=== PATIENT | female | born 1995 | race Caucasian/White ===

== ENCOUNTER 2018-03-13 10:59 | Day surgery (SDC) | payer BC ==
[~2018-03-13 10:59] MED LIST: Lactated Ringers 1,000 ML IV SCH
[2018-03-13] MEDS ORDERED: fentaNYL 100 MCG/2 ML SDV IVPUSH PRN (11:28)
[2018-03-13] MEDS ORDERED: Ondansetron 4 MG/2 ML SDV IVPUSH SCH (11:30)
--- NOTE | 2018-03-13 11:31 | PCM.PREANE ---
Preanesthetic Assessment - Anesthesia/Transfusion/Family Hx Anesthesia History: Prior Anesthesia Without Reaction Family History of Anesthesia Reaction: No Transfusion History: No Prior Transfusion(s) Intubation History: Unknown - Review of Systems General: No Symptoms Pulmonary: No Symptoms Cardiovascular: No Symptoms Neurological: No Symptoms Other: Reports: None - Physical Assessment Height: 1.68 m Weight: 86.183 kg ASA Class: 2 Mental Status: Alert & Oriented x3 Airway Class: Mallampati = 1 Dentition: Reports: Normal Dentition ROM/Head Extension: Full Lungs: Clear to Auscultation, Normal Respiratory Effort Cardiovascular: Regular Rate, Regular Rhythm - Allergies Allergies/Adverse Reactions: Allergies Allergy/AdvReac Type Severity Reaction Status Date / Time No Known Allergies Allergy Verified 03/12/18 08:05 - Blood Blood Available: Yes - Anesthesia Plan Pre-Op Medication Ordered: None - Acknowledgements Anesthesia Type Planned: MAC Pt an Appropriate Candidate for the Planned Anesthesia: Yes Alternatives and Risks of Anesthesia Discussed w Pt/Guardian: Yes Pt/Guardian Understands and Agrees with Anesthesia Plan: Yes PreAnesthesia Questionnaire Other HEENT History: wears contacts/glasses Respiratory History: Reports: Other (See Below) Other Respiratory History: asthma as a child [employer] History: Reports: Other OB/BYN History: vaginal delivery 7 weeks ago, presently breast feeding Psychiatric History: Reports: Anxiety, Depression Hematologic History: Reports: Anemia - Past Surgical History Head Surgeries/Procedures: Reports: None - SUBSTANCE USE Smoking Status *Q: Never Smoker Recreational Drug Use History: No - HOME MEDS Home Medications: Home Meds Iron 27 mg PO DAILY 03/12/18 [History] PNV95/Ferrous Fumarate/FA [ Vitamin Tablet] 1 tab PO DAILY 03/12/18 [ History] - CURRENT (IN HOUSE) MEDS Current Meds: Current Medications Fentanyl (Sublimaze) 50 mcg IVPUSH Q5M PRN PRN Reason: Pain (severe 7-10) Stop: 03/14/18 11:28 Lactated Ringer's (Ringers, Lactated) 1,000 mls @ 125 mls/hr IV ASDIRECTED MELVI Ondansetron HCl (Zofran) 4 mg IVPUSH .ONCE MELVI Stop: 03/13/18 16:00
[2018-03-13] MEDS ORDERED: Propofol 200 MG/20 ML SDV ONE (11:33)
[2018-03-13] MEDS ORDERED: Succinylcholine 200 MG/10 ML MDV ONE (11:34)
[2018-03-13] MEDS ORDERED: Rocuronium 10 MG/ML 10 ML Syringe ONE (11:34)
[2018-03-13] MEDS ORDERED: Midazolam 1 MG/ML 2 ML SDV ONE (11:34)
[2018-03-13] MEDS ORDERED: ceFAZolin 2 GM in Premix Bag 1 BAG IV ONE (12:12)
[2018-03-13] MEDS ORDERED: ceFAZolin 1 GM Vial ONE ×2 (12:48)
--- NOTE | 2018-03-13 12:59 | PCM.OPNOTE ---
- General Post-Op/Procedure Note Date of Surgery/Procedure: 03/13/18 Operative Procedure(s): suction dilatation and curettage Findings: Uterus anteverted. Sounds to 9 cm, minimal tissue obtained, good uterine cry on sharp curettage Pre Op Diagnosis: purpeural fever, rule out retained products of conception Post-Op Diagnosis: Same Anesthesia Technique: MAC Primary Surgeon: Joann Edmond Anesthesia Provider: Allen Diaz Pathology: uterine contents (endometrium vs products of conception) EBL in mLs: 20 Complications: None Known Condition: Good
--- NOTE | 2018-03-13 13:13 | PCM.POSTAN ---
POST ANESTHESIA ASSESSMENT - MENTAL STATUS Mental Status: Alert, Oriented - RESPIRATORY Respiratory Status: Respiratory Rate WNL, Airway Patent, O2 Saturation Stable - CARDIOVASCULAR CV Status: Pulse Rate WNL, Blood Pressure Stable - GASTROINTESTINAL GI Status: No Symptoms - POST OP HYDRATION Hydration Status: Adequate & Stable
--- NOTE | 2018-03-13 13:14 | PCM48HPAN ---
Post Anesthesia Note - EVALUATION WITHIN 48HRS OF ANESTHETIC Vital Signs in Normal Range: Yes Patient Participated in Evaluation: Yes Respiratory Function Stable: Yes Airway Patent: Yes Cardiovascular Function Stable: Yes Hydration Status Stable: Yes Pain Control Satisfactory: Yes Nausea and Vomiting Control Satisfactory: Yes Mental Status Recovered: Yes Resp Rate: 18
--- NOTE | 2018-03-13 19:44 | OR ---
SURGEON: Joann Edmond M.D. DATE OF PROCEDURE: 03/13/2018 PREOPERATIVE DIAGNOSIS: Six weeks with fever, cannot rule out retained products on the ultrasound. POSTOPERATIVE DIAGNOSIS: Six weeks with fever, cannot rule out retained products on the ultrasound. PROCEDURE: Suction dilatation and curettage. ANESTHESIA: LMA. ESTIMATED BLOOD LOSS: Less than 20 mL. FINDINGS: Uterus firm, anteverted, less than eight week size, sounds to 9 cm. Minimal tissue obtained. Good uterine cry felt on all surfaces. COMPLICATIONS: None known. DISPOSITION: Stable to recovery. BRIEF HISTORY: This is a 22-year-old female. She is now 6 weeks . She presented to her visit and reported fevers up to 103. These are intermittent. They generally happen at night. She had stopped bleeding and then has had two episodes of heavy bleeding since that time, and an ultrasound was obtained which showed increased Doppler flow to the anterior endometrium with no discrete products of conception, but could not rule out retained products of conception. I, therefore, recommended proceeding with a suction dilatation and curettage with risks discussed including bleeding, infection, injury to bowel, bladder, blood vessels or other organs, risk of thromboembolic event, risk of anesthesia understanding all these risks, she does desire to proceed. DESCRIPTION OF PROCEDURE: With the patient in dorsal lithotomy position, under adequate LMA analgesia, the perineum and vagina were prepped and draped in usual fashion for vaginal surgery. SCDs were in place. The bladder had been drained and a bimanual examination was performed with the findings of an anteverted firm at 9 week size uterus. After an appropriate time-out was held. A speculum was placed in the vagina. The anterior lip of the cervix was grasped with an Allis clamp. The cervix was sounded to 9 cm. The cervix was easily dilated to a 10 mm Hegar dilator. A 10 mm straight suction curette was placed to the uterine fundus and retracted repetitively turning continuously. There was minimal tissue obtained. Sharp curettage with a curette was performed at the 12 o'clock, 3 o'clock, 6 o'clock, and 9 o'clock position. There was a good uterine cry felt on all surfaces. There was no additional tissue obtained. An additional pass was taken with the suction curette. No further tissue was obtained. There was minimal bleeding. All the instruments were removed from the vagina. Final sponge, needle, and instrument counts were reported as correct. There were no known complications. The patient was transferred to recovery in good condition. ERIKA SMYTH /[id number]
== END 2018-03-13 13:55 | disposition home or self-care (01) ==
LOC: MW.SDS 10:59
PROVIDERS: ATTEND Obstetrics & Gynecology
DX: O72.2 Delayed and secondary postpartum hemorrhage (principal); J45.909 Unspecified asthma, uncomplicated; F41.9 Anxiety disorder, unspecified; F32.9 Major depressive disorder, single episode, unspecified
CPT/HCPCS: 36415; 59160; 81025; 86850; 86900; 86901; J0330; J0690; J2250; J2704; J7120; 88305

== ENCOUNTER 2018-05-18 15:29 | Emergency (ER) | payer BC ==
[2018-05-18] MEDS ORDERED: Sodium Chloride 0.9% 1,000 ML IV ONE (15:34)
--- NOTE | 2018-05-18 15:51 | EDM.PDOC ---
ED HPI GENERAL MEDICAL PROBLEM - General Chief Complaint: Abdominal Pain Stated Complaint: STOMACH PAIN Time Seen by Provider: 05/18/18 15:32 Source of Information: Reports: Patient History Limitations: Reports: No Limitations - History of Present Illness INITIAL COMMENTS - FREE TEXT/NARRATIVE: HISTORY AND PHYSICAL: History of present illness: Patient is a 22-year-old female who presents to the emergency room with complaints of low abdominal pain and numbness and tingling to bilateral hands and fingertips (moreso right than left). She states she had a vaginal delivery approximately 4 months ago and since that time has had intermittent bleeding. She has been seen multiple times by her primary [employer], Dr. Edmond. Recently had been evaluated for vaginal bleeding and anemia. Had an D&C done on 03/14/2018, and an IUD placed 2 weeks ago. She last saw Dr. Edmond 2 days ago as follow up, and states everything was fine. Approximately an hour prior to arrival she started to develop low abdominal pain with numbness and tingling to her hands and fingertips. She denies any recent injury, trauma or falls.She denies any fever, chills, chest pain, shortness of breath or cough. She denies any headache , change in vision, syncope or near syncope. Denies any nausea, vomiting, constipation or dysuria. She did have 2 loose stools this morning but has not noticed any blood or change in consistency. 2, para 1. Currently is breast-feeding. Review of systems: As per history of present illness and below otherwise all systems reviewed and negative. Past medical history: As per history of present illness and as reviewed below otherwise noncontributory. Surgical history: As per history of present illness and as reviewed below otherwise noncontributory. Social history: See social history for further information Family history: As per history of present illness and as reviewed below otherwise noncontributory. Physical exam: General: Well-developed and well nourished 22-year-old female. Alert and oriented. Nontoxic appearing and in no acute distress. HEENT: Atraumatic, normocephalic, pupils equal and reactive bilaterally, negative for conjunctival pallor or scleral icterus, mucous membranes moist, TMs normal bilaterally, throat clear, neck supple, nontender, trachea midline. No drooling or trismus noted. No meningeal signs. No hot potato voice noted. Lungs: Clear to auscultation, breath sounds equal bilaterally, chest nontender. Heart: S1S2, regular rate and rhythm without overt murmur Abdomen: Soft, nondistended, nontender. Negative for masses or hepatosplenomegaly. Negative for costovertebral tenderness. Pelvis: Stable nontender. Genitourinary: Deferred. Rectal: Deferred. Skin: Intact, warm, dry. No lesions or rashes noted. Extremities: Atraumatic, negative for cords or calf pain. Neurovascular unremarkable. Neuro: Awake, alert, oriented. Cranial nerves II through XII unremarkable. Cerebellum unremarkable. Motor and sensory unremarkable throughout. Exam nonfocal. Notes: Ultrasound shows normal bilateral ovarian blood flow with numerous subcentimeter follicles and borderline ovarian volumes which could possibly be PCOS. Informed the patient that she should follow closely with her [employer] for further evaluation and management of this. Patient feels her symptoms have improved after receiving the IV fluids. Her vital signs remained stable. Patient is currently breast-feeding, we discussed [id number] remedies for pain management. She is agreeable and does not want any prescription pain medications. Patient states that she will follow-up with Dr. edmond. Supportive care measures were reviewed and discussed. Voices understanding and is agreeable to plan of care. Denies any further questions or concerns at this time. Diagnostics: CBC, CMP, UA, urine , non-OB pelvic ultrasound Therapeutics: IV fluid Prescription: None Impression: Anemia Paraesthesia of right hand Abdominal pain, nonspecific Plan: 1. Continue to follow up closely with Dr Edmond regarding your chronic anemia and low abdominal pain. 2. Tylenol and/or Ibuprofen as needed for pain management. 3. Return to the ED as needed as discussed. Definitive disposition and diagnosis as appropriate pending reevaluation and review of above. Onset: Today Abdominal Pain Score (Numeric/FACES): 7 - Related Data Allergies Allergy/AdvReac Type Severity Reaction Status Date / Time No Known Allergies Allergy Verified 05/18/18 15:51 Home Meds: Home Meds Iron 27 mg PO DAILY 03/12/18 [History] PNV95/Ferrous Fumarate/FA [ Vitamin Tablet] 1 tab PO DAILY 03/12/18 [ History] Past Medical History Other HEENT History: wears contacts/glasses Respiratory History: Reports: Other (See Below) Other Respiratory History: asthma as a child [employer] History: Reports: Other [employer] History: vaginal delivery 7 weeks ago, presently breast feeding Psychiatric History: Reports: Anxiety, Depression Hematologic History: Reports: Anemia - Past Surgical History Head Surgeries/Procedures: Reports: None Social & Family History - Family History Cardiac: Reports: Hypertension, MS OBGYN: Reports: Neurological: Reports: CVA Endocrine/Metabolic: Reports: Diabetes, type II Oncologic: Reports: Breast, Lung - Caffeine Use Caffeine Use: Reports: None ED ROS GENERAL - Review of Systems Review Of Systems: ROS reveals no pertinent complaints other than HPI. ED EXAM, GI/ABD - Physical Exam Exam: See Below (See dictation) Course - Vital Signs Last Recorded V/S: Last Vital Signs Temp 97.5 F 05/18/18 15:51 Pulse 75 05/18/18 15:51 Resp 18 05/18/18 15:51 BP 143/76 H 05/18/18 15:51 Pulse Ox 100 05/18/18 15:51 Orthostatic Blood Pressure [] 105/68 Orthostatic Blood Pressure [] 113/62 Orthostatic Blood Pressure [] 117/58 - Orders/Labs/Meds Orders: Active Orders 24 hr Category Date Time Status Orthostatic Vital Signs [RC] ASDIRECTED Care 05/18/18 17:19 Active Labs: Laboratory Tests 05/18/18 05/18/18 05/18/18 Range/Units 15:40 15:40 15:49 WBC 9.12 (4.0-11.0) K/uL RBC 5.37 (4.30-5.90) M/uL Hgb 11.9 L (12.0-16.0) g/dL Hct 38.2 (36.0-46.0) % MCV 71.1 L (80.0-98.0) fL MCH 22.2 L (27.0-32.0) pg MCHC 31.2 (31.0-37.0) g/dL RDW Std Deviation 47.6 (28.0-62.0) fl RDW Coeff of Connor 19 H (11.0-15.0) % Plt Count 336 (150-400) K/uL MPV 9.10 (7.40-12.00) fL Neut % (Auto) 49.5 (48.0-80.0) % Lymph % (Auto) 44.0 H (16.0-40.0) % [place] % (Auto) 3.4 (0.0-15.0) % Eos % (Auto) 2.9 (0.0-7.0) % Baso % (Auto) 0.2 (0.0-1.5) % Neut # (Auto) 4.5 (1.4-5.7) K/uL Lymph # (Auto) 4.0 H (0.6-2.4) K/uL [place] # (Auto) 0.3 (0.0-0.8) K/uL Eos # (Auto) 0.3 (0.0-0.7) K/uL Baso # (Auto) 0.0 (0.0-0.1) K/uL Nucleated RBC % 0.0 /100WBC Nucleated RBCs # 0 K/uL Sodium (136-145) mmol/L Potassium (3.5-5.1) mmol/L Chloride (98-107) mmol/L Carbon Dioxide (21.0-32.0) mmol/L BUN (7.0-18.0) mg/dL Creatinine (0.6-1.0) mg/dL Est Cr Clr Drug Dosing mL/min Estimated GFR (MDRD) ml/min Glucose (74-106) mg/dL Calcium (8.5-10.1) mg/dL Total Bilirubin (0.2-1.0) mg/dL AST (15-37) IU/L ALT (14-63) IU/L Alkaline Phosphatase (46-116) U/L Total Protein (6.4-8.2) g/dL Albumin (3.4-5.0) g/dL Globulin (2.6-4.0) g/dL Albumin/Globulin Ratio (0.9-1.6) Urine Color YELLOW Urine Appearance CLEAR Urine pH 7.0 (5.0-8.0) Ur Specific [place] 1.020 (1.001-1.035) Urine Protein TRACE H (NEGATIVE) mg/dL Urine Glucose (UA) NEGATIVE (NEGATIVE) mg/dL Urine Ketones NEGATIVE (NEGATIVE) mg/dL Urine Occult Blood SMALL H (NEGATIVE) Urine Nitrite NEGATIVE (NEGATIVE) Urine Bilirubin NEGATIVE (NEGATIVE) Urine Urobilinogen 0.2 (<2.0) EU/dL Ur Leukocyte Esterase NEGATIVE (NEGATIVE) Urine RBC 0-2 (0-2/HPF) Urine WBC 1-3 (0-5/HPF) Ur Epithelial Cells FEW (NONE-FEW) Amorphous Sediment FEW (NEGATIVE) Urine Bacteria FEW (NEGATIVE) Urine Mucus FEW (NONE-MOD) Urine HCG, Qual NEGATIVE (NEGATIVE) 05/18/18 Range/Units 15:49 WBC (4.0-11.0) K/uL RBC (4.30-5.90) M/uL Hgb (12.0-16.0) g/dL Hct (36.0-46.0) % MCV (80.0-98.0) fL MCH (27.0-32.0) pg MCHC (31.0-37.0) g/dL RDW Std Deviation (28.0-62.0) fl RDW Coeff of Connor (11.0-15.0) % Plt Count (150-400) K/uL MPV (7.40-12.00) fL Neut % (Auto) (48.0-80.0) % Lymph % (Auto) (16.0-40.0) % [place] % (Auto) (0.0-15.0) % Eos % (Auto) (0.0-7.0) % Baso % (Auto) (0.0-1.5) % Neut # (Auto) (1.4-5.7) K/uL Lymph # (Auto) (0.6-2.4) K/uL [place] # (Auto) (0.0-0.8) K/uL Eos # (Auto) (0.0-0.7) K/uL Baso # (Auto) (0.0-0.1) K/uL Nucleated RBC % /100WBC Nucleated RBCs # K/uL Sodium 142 (136-145) mmol/L Potassium 3.5 (3.5-5.1) mmol/L Chloride 106 (98-107) mmol/L Carbon Dioxide 23.7 (21.0-32.0) mmol/L BUN 14 (7.0-18.0) mg/dL Creatinine 1.1 H (0.6-1.0) mg/dL Est Cr Clr Drug Dosing 79.33 mL/min Estimated GFR (MDRD) > 60.0 ml/min Glucose 118 H (74-106) mg/dL Calcium 9.1 (8.5-10.1) mg/dL Total Bilirubin 0.3 (0.2-1.0) mg/dL AST 8 L (15-37) IU/L ALT 24 (14-63) IU/L Alkaline Phosphatase 108 (46-116) U/L Total Protein 8.2 (6.4-8.2) g/dL Albumin 4.1 (3.4-5.0) g/dL Globulin 4.1 H (2.6-4.0) g/dL Albumin/Globulin Ratio 1.0 (0.9-1.6) Urine Color Urine Appearance Urine pH (5.0-8.0) Ur Specific [place] (1.001-1.035) Urine Protein (NEGATIVE) mg/dL Urine Glucose (UA) (NEGATIVE) mg/dL Urine Ketones (NEGATIVE) mg/dL Urine Occult Blood (NEGATIVE) Urine Nitrite (NEGATIVE) Urine Bilirubin (NEGATIVE) Urine Urobilinogen (<2.0) EU/dL Ur Leukocyte Esterase (NEGATIVE) Urine RBC (0-2/HPF) Urine WBC (0-5/HPF) Ur Epithelial Cells (NONE-FEW) Amorphous Sediment (NEGATIVE) Urine Bacteria (NEGATIVE) Urine Mucus (NONE-MOD) Urine HCG, Qual (NEGATIVE) Meds: Medications Discontinued Medications Generic Name Dose Route Start Last Admin Trade Name Freq PRN Reason Stop Dose Admin Sodium Chloride 1,000 mls @ 999 mls/hr 05/18/18 15:34 05/18/18 15:49 Normal Saline IV 05/18/18 16:34 999 mls/hr STAT ONE Administration Departure - Departure Time of Disposition: 18:27 Disposition: Home, Self-Care 01 Clinical Impression: Abdominal pain Qualifiers: Abdominal location: lower abdomen, unspecified Qualified Code(s): R10.30 - Lower abdominal pain, unspecified Anemia Qualifiers: Anemia type: unspecified type Qualified Code(s): D64.9 - Anemia, unspecified Paresthesia of hand Qualifiers: Laterality: right Qualified Code(s): R20.2 - Paresthesia of skin - Discharge Information Instructions: Abdominal Pain, Adult, [id number] Referrals: PCP,Unknown [Primary Care Provider] - Forms: ED Department Discharge Additional Instructions: The following information is given to patients seen in the emergency department who are being discharged to home. This information is to outline your options for follow-up care. We provide all patients seen in our emergency department with a follow-up referral. The need for follow-up, as well as the timing and circumstances, are variable depending upon the specifics of your emergency department visit. If you don't have a primary care physician on staff, we will provide you with a referral. We always advise you to contact your personal physician following an emergency department visit to inform them of the circumstance of the visit and for follow-up with them and/or the need for any referrals to a consulting specialist. The emergency department will also refer you to a specialist when appropriate. This referral assures that you have the opportunity for follow-up care with a specialist. All of these measure are taken in an effort to provide you with optimal care, which includes your follow-up. Under all circumstances we always encourage you to contact your private physician who remains a resource for coordinating your care. When calling for follow-up care, please make the office aware that this follow-up is from your recent emergency room visit. If for any reason you are refused follow-up, please contact the [facility] Emergency Department at and asked to speak to the emergency department charge nurse. [facility] [address] [place] [id number] [facility] [address] [place] [id number] [facility] [address] [place] [id number] 1. Continue to follow up closely with Dr Edmond regarding your chronic anemia and low abdominal pain. 2. Tylenol and/or Ibuprofen as needed for pain management. 3. Return to the ED as needed as discussed. - My Orders Last 24 Hours: My Active Orders 05/18/18 17:19 Orthostatic Vital Signs [RC] ASDIRECTED - Assessment/Plan Last 24 Hours: My Active Orders 05/18/18 17:19 Orthostatic Vital Signs [RC] ASDIRECTED
[2018-05-18 16:19] LABS: CHLORIDE,CL 106 mmol/L (98-107); SODIUM,NA 142 mmol/L (136-145)
--- NOTE | 2018-05-18 18:13 | US ---
INDICATION: Low pelvic pain TECHNIQUE: Ultrasound pelvis transabdominal and transvaginal for better assessment or to better visualize the endometrium. Real-time sonographic images with spectral and color Doppler imaging of the ovaries were obtained. COMPARISON: None FINDINGS: Uterus: 8.3 x 3.7 x 4.7 cm. Normal echotexture of the myometrium. No masses. Endometrium: Transvaginal imaging was performed to better evaluate the endometrium. Endometrial thickness measures 6 mm. Intrauterine device centered within the endometrial cavity. Right ovary measures 3.1 x 3.7 x 2.5 cm and left ovary measures 3.8 x 3.6 x 1.9 cm. Borderline size of the ovaries with multiple subcentimeter follicles. Normal arterial and venous blood flow is demonstrated in both ovaries. Cul-de-sac: Small free fluid. IMPRESSION: 1. Normal bilateral ovarian blood flow with numerous subcentimeter follicles and borderline ovarian volumes, possibly polycystic ovarian syndrome. Clinical correlation. 2. Unremarkable sonographic appearance of the uterus. Intrauterine device centered within the endometrial cavity. Dictated by Jean Ragland MD @ May 18 2018 6:05PM Signed by Dr. Jean Ragland @ May 18 2018 6:11PM
== END 2018-05-18 18:35 | disposition home or self-care (01) ==
LOC: MW.ED 15:29
DX: R10.30 Lower abdominal pain, unspecified (principal); D64.9 Anemia, unspecified; R20.2 Paresthesia of skin
CPT/HCPCS: 36415; 76856; 80053; 81001; 81025; 85025; 96360; 99284; J7040

== ENCOUNTER 2021-05-14 14:14 | Inpatient (IN) | payer BC ==
[2021-05-14] MEDS: Lactated Ringers 1,000 ML IV SCH ×2 (17:22→18:40)
[2021-05-14] MEDS ORDERED: Tranexamic Acid 1,000 MG in Sodium Chloride 0.9% 100 ML IV PRN ×2 (17:52→21:32)
[2021-05-14] MEDS ORDERED: Sodium Chloride 0.9% 2.5 ML Syringe FLUSH PRN (17:52)
[2021-05-14] MEDS ORDERED: Methylergonovine 0.2 MG/1 ML Amp IM PRN (17:52)
[2021-05-14] MEDS ORDERED: Lidocaine 1% 50 ML MDV INJECT PRN (17:52)
[2021-05-14] MEDS ORDERED: Carboprost Tromethamine 250 MCG/1 ML Amp IM PRN ×2 (17:52→21:32)
[2021-05-14] MEDS ORDERED: Butorphanol 1 MG/ML SDV IVPUSH PRN (17:52)
[2021-05-14] MEDS ORDERED: Sodium Chloride 0.9% 20 ML SDV IV PRN (17:52)
[2021-05-14] MEDS ORDERED: Sodium Chloride 0.9% 10 ML Syringe FLUSH PRN (17:52)
[2021-05-14] MEDS ORDERED: Water For Irrigation,Sterile 1,000 ML Container IRR PRN (17:52)
[2021-05-14] MEDS ORDERED: Misoprostol 200 MCG Tab PO PRN (17:52)
[2021-05-14] MEDS ORDERED: Oxytocin/0.9 % Sodium Chloride 30 UNIT/500 ML BAG IV SCH (18:00)
[2021-05-14] MEDS ORDERED: Ropivacaine 100 ML ONE (18:35)
[2021-05-14] MEDS ORDERED: ePHEDrine 50 MG/ML SDV IVPUSH PRN ×2 (18:47)
[2021-05-14] MEDS ORDERED: Ropivacaine 200 MG in Premix Bag 1 BAG EPIDUR SCH (19:00)
[2021-05-14] MEDS ORDERED: Methylergonovine 0.2 MG/1 ML Amp ONE (20:30)
[2021-05-14] MEDS ORDERED: Oxytocin/0.9 % Sodium Chloride 30 UNIT/500 ML BAG ONE (21:11)
[2021-05-14] MEDS ORDERED: Acetaminophen 500 MG Tab PO PRN ×2 (21:32)
[2021-05-14] MEDS ORDERED: Benzocaine/Menthol 20%-0.5% Spray 78 GM Cannister TOP PRN (21:32)
[2021-05-14] MEDS ORDERED: Witch Hazel Medicated Pads 40/Jar TOP PRN (21:32)
[2021-05-14] MEDS ORDERED: Misoprostol 200 MCG Tab RECTAL PRN (21:32)
[2021-05-14] MEDS ORDERED: Lanolin 100% Cream 7 GM Tube TOP PRN (21:32)
[2021-05-14] MEDS ORDERED: oxyCODONE 5 MG Tab PO PRN (21:32)
[2021-05-14] MEDS ORDERED: Ibuprofen 400 MG Tab PO PRN (21:32)
[2021-05-14] MEDS ORDERED: Bisacodyl 10 MG Supp RECTAL PRN (21:32)
[2021-05-14] MEDS ORDERED: Docusate Sodium 100 MG Cap PO PRN (21:32)
[2021-05-15] MEDS: Ibuprofen 800 MG Tab PO PRN ×3 (01:06→22:51)
== END 2021-05-16 14:25 | disposition home or self-care (01) | DRG 560 ==
LOC: MW.OBCHECK 14:14 → MW.OB 14:15 → MW.OBCHECK 17:52 → MW.OB 17:52 → OBSVTOIN 21:08 → MW.OB 05-15 01:00
PROVIDERS: ADMIT Obstetrics & Gynecology; ATTEND Obstetrics & Gynecology
PROC: 10E0XZZ Delivery of Products of Conception, External Approach (ICD-10-PCS; principal; 2021-05-14)
PROC: 10907ZC Drainage of Amniotic Fluid, Therapeutic from Products of Conception, Via Natural or Artificial Opening (ICD-10-PCS; 2021-05-14)
PROC: 3E0R3BZ Introduction of Anesthetic Agent into Spinal Canal, Percutaneous Approach (ICD-10-PCS; 2021-05-14)
PROC: 00HU33Z Insertion of Infusion Device into Spinal Canal, Percutaneous Approach (ICD-10-PCS; 2021-05-14)
DX: O36.63X0 Maternal care for excessive fetal growth, third trimester, not applicable or unspecified (principal); Z37.0 Single live birth; O69.81X0 Labor and delivery complicated by cord around neck, without compression, not applicable or unspecified; Z20.822 Contact with and (suspected) exposure to COVID-19; Z3A.37 37 weeks gestation of pregnancy
CPT/HCPCS: 01967; 36415; 51702; 59025; 59409; 59414; 82803; 85014; 85018; 85027; 86592; 86850; 86900; 86901; A9270-GY; J2590; J2795; J7120; U0002

== ENCOUNTER 2022-07-23 18:13 | Emergency (ER) | payer BC ==
[2022-07-23] MEDS ORDERED: Lidocaine 1% 5 ML VIAL INJECT STA (19:52)
== END 2022-07-23 21:00 | disposition home or self-care (01) ==
LOC: MW.ED 18:13
DX: S91.311A Laceration without foreign body, right foot, initial encounter (principal); W25.XXXA Contact with sharp glass, initial encounter; Y92.512 Supermarket, store or market as the place of occurrence of the external cause
CPT/HCPCS: 12001; 73630-26-RT; 73630-RT; 99283; J3490

== ENCOUNTER 2024-09-02 20:53 | Inpatient (IN) | payer BC ==
[2024-09-02] MEDS ORDERED: Sodium Chloride 0.9% 2.5 ML Syringe FLUSH PRN (20:59)
[2024-09-02] MEDS ORDERED: Sodium Chloride 0.9% 10 ML Syringe FLUSH PRN (20:59)
[2024-09-02] MEDS ORDERED: Water For Irrigation,Sterile 1,000 ML Container IRR PRN (20:59)
[2024-09-02] MEDS ORDERED: Ondansetron 4 MG/2 ML SDV IVPUSH PRN (20:59)
[2024-09-02] MEDS ORDERED: Carboprost Tromethamine 250 MCG/1 mL Vial IM PRN (20:59)
[2024-09-02] MEDS ORDERED: Butorphanol 1 MG/ML SDV IVPUSH PRN (20:59)
[2024-09-02] MEDS: Lactated Ringers 1,000 ML IV SCH (21:00)
[2024-09-02] MEDS ORDERED: Ropivacaine HCl/PF 200 ML ONE (21:15)
[2024-09-02] MEDS ORDERED: fentaNYL 100 MCG/2 ML SDV ONE (21:15)
[2024-09-02] MEDS ORDERED: dexmedeTOMIDine HCl 200 MCG/2 ML SDV ONE (21:15)
[2024-09-02] MEDS ORDERED: ePHEDrine 50 MG/ML SDV IVPUSH PRN (21:20)
[2024-09-02] MEDS ORDERED: dexmedeTOMIDine HCl 200 MCG/2 ML SDV EPIDUR SCH (21:30)
[2024-09-02] MEDS: Oxytocin/0.9 % Sodium Chloride 30 UNIT/500 ML BAG IV SCH (22:05)
[2024-09-02] MEDS: Ropivacaine HCl/PF 400 MG in Premix Bag 1 BAG EPIDUR SCH (22:20)
[2024-09-02] MEDS ORDERED: Lanolin 100% Cream 7 GM Tube TOP PRN (23:12)
[2024-09-02 23:18] LABS: PH,UMBILICAL ARTERIAL 7.27 (7.18-7.38)
[2024-09-02 23:19] LABS: PH,UMBILICAL VENOUS 7.39 (7.25-7.45)
[2024-09-03] MEDS: Benzocaine/Menthol 20%-0.5% Spray 78 GM Cannister TOP PRN (03:41)
[2024-09-03] MEDS: Witch Hazel Medicated Pads 40/Jar TOP PRN (03:41)
[2024-09-03 03:43] LABS: MEAN PLATELET VOLUME 9.3 fL (9.4-12.3); NRBC ABSOLUTE 0.00 K/uL (0.00-0.02); NRBC PERCENT 0.0 /100WBC (0.0-0.2); PLATELET COUNT,PLT 219 K/uL (150-400); RED BLOOD CELL COUNT 4.09 M/uL (4.10-5.30); WHITE BLOOD CELL COUNT,WBC 15.14 K/uL (3.9-11.3)
[2024-09-03 05:37] LABS: BASOPHILS ABSOLUTE AUTO 0.03 K/uL (0.00-0.20); BASOPHILS PERCENT AUTO 0.2 % (0.0-1.0); EOSINOPHILS ABSOLUTE AUTO 0.11 K/uL (0.00-0.45); EOSINOPHILS PERCENT AUTO 0.8 % (0.0-6.0); IMMATURE GRAN ABSOLUTE AUTO 0.06 K/uL (0.00-0.05); IMMATURE GRAN PERCENT AUTO 0.4 % (0.0-0.4); LYMPHOCYTES ABSOLUTE AUTO 3.04 K/uL (1.00-4.80); LYMPHOCYTES PERCENT AUTO 21.1 % (24.0-44.0); MEAN PLATELET VOLUME 9.3 fL (9.4-12.3); MONOCYTES ABSOLUTE AUTO 1.11 K/uL (0.00-0.80); MONOCYTES PERCENT AUTO 7.7 % (0.0-8.0); NEUTROPHILS ABSOLUTE AUTO 10.03 K/uL (1.80-7.70); NEUTROPHILS PERCENT AUTO 69.8 % (41.0-71.0); NRBC ABSOLUTE 0.00 K/uL (0.00-0.02); NRBC PERCENT 0.0 /100WBC (0.0-0.2); PLATELET COUNT,PLT 216 K/uL (150-400); RED BLOOD CELL COUNT 4.03 M/uL (4.10-5.30); WHITE BLOOD CELL COUNT,WBC 14.38 K/uL (3.9-11.3)
== END 2024-09-04 11:15 | disposition home or self-care (01) | DRG 560 ==
LOC: MW.OB 20:53 → MW.OBCHECK 20:53 → MW.OB 20:59 → OBSVTOIN 22:04 → MW.OB 09-03 02:52
PROVIDERS: ADMIT Obstetrics & Gynecology; ATTEND Obstetrics & Gynecology
PROC: 10E0XZZ Delivery of Products of Conception, External Approach (ICD-10-PCS; principal; 2024-09-02)
DX: O99.214 Obesity complicating childbirth (principal); Z37.0 Single live birth; O69.81X0 Labor and delivery complicated by cord around neck, without compression, not applicable or unspecified; E66.01 Morbid (severe) obesity due to excess calories; Z3A.38 38 weeks gestation of pregnancy
CPT/HCPCS: 36415; 82803; 85025; 85027; 86592; 86850; 86900; 86901; A9270-GY; J2590; J2795; J3010; J7120